=== PATIENT | male | born 1985 | race Caucasian/White ===

== ENCOUNTER 2021-06-23 10:17 | Emergency (ER) | payer SELFPAY ==
[~2021-06-23] VITALS: Ht 172.7 cm; Wt 75.4 kg
--- NOTE | 2021-06-23 10:40 | NUR ---
MD and RN at bedside for exams. Pt moved to trauma 3 and report given to trauma RN per MD request. Pt plan of care for procedural sedation and EGD today.
--- NOTE | 2021-06-23 10:53 | NUR ---
dr hyde spoke with dr shore
--- NOTE | 2021-06-23 10:55 | NUR ---
called Eduardo (programmer operator numerical control) for adi to come in for case with dr shore at 1230.
[2021-06-23] MEDS ORDERED: PROPOFOL 10 MG/ML, 20ML IVPush ONE ×2 (11:00→13:00)
[2021-06-23] MEDS ORDERED: SODIUM CHLORIDE 0.9% 1,000ML IVBOLUS ONE (11:00)
[2021-06-23] MEDS ORDERED: PROPOFOL 10 MG/ML, 20ML ONE (12:07)
--- NOTE | 2021-06-23 13:06 | NUR ---
PROCEDURE COMPLETE. SEE PAPERWORK FOR CHARTING.
[2021-06-23 13:48] VITALS: BP 118/60
--- NOTE | 2021-06-23 13:48 | NUR ---
BREAK RN: PT IS A&O X4. VS STABLE. PT IS ABLE TO SAFELY GET SELF DRESSED AND AMBULATE AROUND ROOM. PT HAS A RIDE HOME FROM HIS . PT READY FOR DC.
== END 2021-06-23 13:51 | disposition home or self-care (01) ==
LOC: ED 13:33
DX: T18.128A Food in esophagus causing other injury, initial encounter (principal); X58.XXXA Exposure to other specified factors, initial encounter; Y93.89 Activity, other specified; Y92.89 Other specified places as the place of occurrence of the external cause; Y99.8 Other external cause status
CPT/HCPCS: 43247; 99151; 99285; J2704; J7030; 88305